=== PATIENT | female | born 1935 | race Native Hawaiian/Other Pacific Islander ===

== ENCOUNTER 2016-08-18 15:15 | Outpatient (CLI) | payer OTHER ==
[~2016-08-18 15:15] MED LIST: AMLO2.5T PO; CRESTOR20 MG PO; DIPH2.5T76 PO; METO50TA27 PO; PROAIR HFA IN; TRAM50TA PO; XANAX XR1 MG PO
[2016-08-19] MEDS ORDERED: FERROUS SULF325 MG PO (09:51)
[2016-08-19] MEDS ORDERED: MICRO-K10 MEQ PO (09:52)
[2016-08-19] MEDS ORDERED: RISP0.25 PO (09:53)
[2016-08-19] MEDS ORDERED: ESCITALOPRAM5 MG PO (09:54)
[2016-08-19] MEDS ORDERED: DIVALPROEX250 MG PO (09:54)
[2016-08-19] MEDS ORDERED: NAMENDA XR28 MG PO (09:54)
[2016-08-19] MEDS ORDERED: DIVALPROEX500 M1 PO (09:55)
[2016-08-19] MEDS ORDERED: FURO20TA67 PO (09:56)
== END 2016-08-18 15:27 | disposition short-term general hospital (02) ==
LOC: AMB 15:15
DX: R41.82 Altered mental status, unspecified (principal)
CPT/HCPCS: A0425; A0427

== ENCOUNTER 2016-08-18 15:27 | Inpatient (IN) | payer OTHER ==
[~2016-08-18] VITALS: Ht 154.9 cm; Wt 69.9 kg
[2016-08-18 15:49] VITALS: BP 148/68; TEMP 98.2
[2016-08-18 17:53] LABS: PLATELET COUNT 279 K/uL (152-353)
[2016-08-18 18:08] LABS: POTASSIUM 4.5 mmol/L (3.6-5.2)
[2016-08-18 18:46] VITALS: BP 131/61
[2016-08-19] VITALS (7 sets, daily range): BP systolic 126–183; BP diastolic 55–93; TEMP 97.6–100.5; Ht 154.9 cm; Wt 69.9 kg
[2016-08-19] MEDS ORDERED: FERROUS SULF325 MG PO (09:51)
[2016-08-19] MEDS ORDERED: MICRO-K10 MEQ PO (09:52)
[2016-08-19] MEDS ORDERED: RISP0.25 PO (09:53)
[2016-08-19] MEDS ORDERED: ESCITALOPRAM5 MG PO (09:54)
[2016-08-19] MEDS ORDERED: NAMENDA XR28 MG PO (09:54)
[2016-08-19] MEDS ORDERED: DIVALPROEX250 MG PO (09:54)
[2016-08-19] MEDS ORDERED: DIVALPROEX500 M1 PO (09:55)
[2016-08-19] MEDS ORDERED: FURO20TA67 PO (09:56)
[2016-08-20 04:00] VITALS: BP 165/67; TEMP 98.9
[2016-08-20 05:28] LABS: PLATELET COUNT 230 K/uL (152-353)
[2016-08-20 05:52] LABS: POTASSIUM 4.9 mmol/L (3.6-5.2); SODIUM 127 mmol/L (136-145)
[2016-08-20 08:00] VITALS: BP 159/67; TEMP 99.3
--- NOTE | 2016-08-20 10:30 | NUR ---
PT IV SITE TENDER AND SLIGHTLY EDEMATOUS. IV DC'D WITH CANNULA INTACT AND SITE CARE PROVIDED. PT HAD BM. PT CLEANED AND CHANGED. SMALL BREAKDOWN NOTED TO BUTTOCKS. MEASURES APPX 1/2 CM X 1/2 CM. WILL INFORM MD. DAUGHTER STATES PT REFUSES TO TURN AT TIMES. INSTRUCTED DAUGHTER ON THE IMPORTANCE OF TURNING AND STAYING OFF BUTTOCKS. PT ON L SIDE AT THIS TIME.
[2016-08-20 12:00] VITALS: BP 148/62; TEMP 98.6
--- NOTE | 2016-08-20 12:30 | NUR ---
PT DAUGHTER CHANGING PT UPON ENTERING ROOM. INSTRUCTED PT TECH AND NURSE WOULD CHANGE HER. DAUGHTER STATED SHE WOULD DO IT. INSTRUCTED DAUGHTER NEED OF ROTATING PT EVERY 2 HOURS. DAUGHTER V/U. INSTRUCTED DAUGHTER TO CALL FOR ANY ASSISTANCE.
--- NOTE | 2016-08-20 12:40 | NUR ---
IV STARTED TO R FA WITH 22G ANGIOCATH X 1 ATTEMPT. PT TOLERATED WELL. NS INFUSING AT 75ML/HR ORDERED.
--- NOTE | 2016-08-20 15:01 | NUR ---
PT BATHED AND CLEANED AT THIS TIME. LINENS CHANGED. PT TOLERATED WELL. LANISEPTIC AND CALAZIME APPLIED TO BUTTOCKS ORDERED.
[2016-08-20 16:00] VITALS: BP 140/62; TEMP 100.4
--- NOTE | 2016-08-20 18:14 | NUR ---
PT CLEANED AND CHANGED. LINENS CHANGED AGAIN AT THIS TIME. PT ON LEFT SIDE AT THIS TIME. DAUGHTER AT BS
[2016-08-20 20:00] VITALS: BP 142/72; TEMP 97.9
[2016-08-21] VITALS: BP 158/70; TEMP 98.9
[2016-08-21 05:54] VITALS: BP 145/92; TEMP 99.2
[2016-08-21 07:58] LABS: PLATELET COUNT 206 K/uL (152-353)
[2016-08-21 08:00] VITALS: BP 132/58; TEMP 99.2
[2016-08-21 08:13] LABS: POTASSIUM 4.4 mmol/L (3.6-5.2); SODIUM 128 mmol/L (136-145)
[2016-08-21 11:49] VITALS: BP 156/78; TEMP 99
[2016-08-21 16:00] VITALS: BP 164/79; TEMP 102.4; TEMP 99.4
[2016-08-21 20:00] VITALS: BP 150/66; TEMP 97.8
[2016-08-22 00:18] VITALS: BP 127/94; TEMP 98
[2016-08-22 04:00] VITALS: BP 175/73; TEMP 98.3
[2016-08-22 05:06] LABS: PLATELET COUNT 219 K/uL (152-353)
[2016-08-22 05:36] LABS: POTASSIUM 4.4 mmol/L (3.6-5.2); SODIUM 130 mmol/L (136-145)
[2016-08-22 08:00] VITALS: BP 127/58; TEMP 98.8
--- NOTE | 2016-08-22 09:43 | NUR ---
PT'S AM METOPROLOL REFUSED BY CAREGIVER AT BEDSIDE. AT 08:00, PCT'S WERE ATTEMPTING TO PERFORM IN & OUT CATH TO OBTAIN UA PER MD ORDER AND PT URINATED 3RD BEDADINE WIPE WAS BEING USED. WILL ATTEMPT AGAIN TO IN AND OUT CATH PT. PT IN NO MEDICAL DISTRESS AT THIS TIME.
[2016-08-22 12:00] VITALS: BP 114/58; TEMP 98.5
[2016-08-22 16:00] VITALS: BP 124/56; TEMP 98.2
[2016-08-22 20:29] VITALS: BP 134/71; TEMP 101.2
--- NOTE | 2016-08-22 21:15 | NUR ---
EVENING VS REVEALED TEMP OF 101.2, PT WAS GIVEN TYLENOL 650 MG PO WITH FOLLOW UP T OF 99.4 AX. ROOM WAS WARM, THERMOMETER ADJUSTED AND PT RESTING QUIETLY. TAKES MEDICATIONS 1-2 AT A TIME WITHOUT DIFFICULTY. MILDLY FLAT AFFECT, NONVERBAL AT THIS TIME.
[2016-08-23] VITALS: BP 151/71; TEMP 98.3
[2016-08-23 04:00] VITALS: BP 148/65; TEMP 97.7
[2016-08-23 05:47] LABS: POTASSIUM 4.5 mmol/L (3.6-5.2); SODIUM 131 mmol/L (136-145)
[2016-08-23 06:10] LABS: PLATELET COUNT 223 K/uL (152-353)
[2016-08-23 08:00] VITALS: BP 143/65; TEMP 98.5
--- NOTE | 2016-08-23 11:54 | NUR ---
PT'S TEMP NOTED TO BE 100.3 UPON ROUTINE VITAL SIGNS AT 11:30. PT HAD 3 BLANETS ON, 2 COVERS REMOVED AND TEMP REMAINS AT 76 IN ROOM PER PT'S DAUGHTER REQUEST. WILL RECHECK PT TEMP IN 30 ANGELINA
[2016-08-23 12:17] VITALS: BP 159/83; TEMP 100.3
[2016-08-23 15:59] VITALS: BP 144/81; TEMP 98.8
[2016-08-23 20:00] VITALS: BP 134/72; TEMP 98
[2016-08-24] VITALS (7 sets, daily range): BP systolic 108–142; BP diastolic 56–68; TEMP 97.1–99.5
[2016-08-24 05:09] LABS: PLATELET COUNT 256 K/uL (152-353)
--- NOTE | 2016-08-24 05:26 | NUR ---
08/24/16 O455 IN AND OUT CATH PERFORMED VIA TABLE GAMES DUAL RATE SUPERVISOR TO OBTAIN URINE FOR UA, PT IS INCONTINENT. PT TOLERATED WITH NO PROBLEMS. CLEAR, LIGHT YELLOW URINE NOTED.
[2016-08-24 05:36] LABS: POTASSIUM 4.2 mmol/L (3.6-5.2); SODIUM 133 mmol/L (136-145)
--- NOTE | 2016-08-24 09:08 | NUR ---
PT CLEANED AND TURNED AT THIS TIME. CREAM APPLIED TO BOTTOM ORDERED. SEE WOULD ASSESSMENT FOR MEASUREMENTS. PT TOLERATED WELL.
--- NOTE | 2016-08-24 11:49 | NUR ---
PT HAD BM AGAIN. PT CLEANED, CHANGED, AND TURNED TO R SIDE AT THIS TIME. PT TOLERATED WELL.
--- NOTE | 2016-08-24 12:00 | NUR ---
DR CHACKO AT BS. NEW ORDERS GIVEN FOR WOUND ON BUTTOCKS. DUODERM APPLIED ORDERED.
--- NOTE | 2016-08-24 16:15 | NUR ---
PT REC'D BATH AT THIS TIME. LINENS CHANGED. PT HAD LOOSE BM. PT TOLERATED BATH WELL. NAD NOTED.
[2016-08-25 00:26] VITALS: BP 127/61; TEMP 99
[2016-08-25 04:00] VITALS: BP 149/68; TEMP 98.5
[2016-08-25 06:25] LABS: PLATELET COUNT 291 K/uL (152-353)
[2016-08-25 07:01] LABS: POTASSIUM 4.4 mmol/L (3.6-5.2); SODIUM 130 mmol/L (136-145)
[2016-08-25 08:00] VITALS: BP 141/69; TEMP 98.5
--- NOTE | 2016-08-25 09:00 | NUR ---
PT UP TO CHAIR AT THIS TIME FOR BREAKFAST. WEAKNESS NOTED. PT TOLERATED WELL. PT TOOK AM MEDS WITHOUT DIFFICULTY. 1000-PT BACK TO BED AT THIS TIME. LINENS CHANGED. PT CHANGED AND PT ON R SIDE AT THIS TIME WITH ARMS ELEVATED. PT TOLERATED WELL.
[2016-08-25 12:00] VITALS: BP 142/68; TEMP 98.8
== END 2016-08-25 15:30 | disposition swing bed (61) | DRG 690 ==
LOC: ED 15:27 → MED/SURG 18:47 → ED 21:03 → MED/SURG 08-25 15:30
PROVIDERS: Emergency Medicine; ADMIT Specialist
DX: N39.0 Urinary tract infection, site not specified (principal); E87.1 Hypo-osmolality and hyponatremia; B96.20 Unspecified Escherichia coli [E. coli] as the cause of diseases classified elsewhere; R41.82 Altered mental status, unspecified; E87.6 Hypokalemia; E86.9 Volume depletion, unspecified; J20.9 Acute bronchitis, unspecified; F03.90 Unspecified dementia, unspecified severity, without behavioral disturbance, psychotic disturbance, mood disturbance, and anxiety
CPT/HCPCS: 36415; 51702; 80053; 80307; 81000; 83605; 83735; 84100; 85027; 87040; 87077; 87086; 87088; 87186; 94640; 94664; 94760; 96360; 96361; 96365; 96367; 96375; 99284; G0479; J0696; J1720; J3411; J3475; J3490

== ENCOUNTER 2016-08-25 15:30 | Inpatient (IN) | payer OTHER ==
[~2016-08-25] VITALS: Ht 154.9 cm; Wt 69.9 kg
[~2016-08-25 15:30] MED LIST changes: +DIVALPROEX250 MG PO; +DIVALPROEX500 M1 PO; +ESCITALOPRAM5 MG PO; +FERROUS SULF325 MG PO; +FURO20TA67 PO; +MICRO-K10 MEQ PO; +NAMENDA XR28 MG PO; +RISP0.25 PO
[2016-08-25 17:12] VITALS: BP 142/68; TEMP 98.8; Ht 154.9 cm; Wt 69.9 kg
--- NOTE | 2016-08-25 17:34 | NUR ---
1530-PT CHANGED TO SWINGBED STATUS AT THIS TIME. IV DC'D WITH CANNULA INTACT AND SITE CARE PROVIDED. PT TURNED AND REPOSTIONED AT THIS TIME. PT TOLERATED WELL.
[2016-08-25 20:45] VITALS: BP 138/69; TEMP 97.7
[2016-08-26 08:00] VITALS: BP 121/57; TEMP 98.3
[2016-08-26 20:14] VITALS: BP 126/63; TEMP 97.8
[2016-08-27 08:20] VITALS: BP 135/60; TEMP 98.1
[2016-08-28 08:00] VITALS: BP 125/56; TEMP 98
[2016-08-28 20:11] VITALS: BP 131/67; TEMP 98.5
[2016-08-29 20:06] VITALS: BP 144/61; TEMP 99.4
--- NOTE | 2016-08-30 08:30 | NUR ---
PAATIENT AWAKE AND ALERT, DAUGHTER AT BEDSIDE. ASSITED CHANGING HER DIAPER. NEW DOUDERM APPLIEED TO BUTTOCKS TO SMALL DECUBITIS. LANTISEPTIC OINTMENT APPLIED, SKIN IS NOT RED OR IRITATED. MEDICATIONS ADMINISTERED WITHOUT DIFFICULTY. PATIENT DOES NOT APPEAR TO BE IN ANY DISCOMFORT.
[2016-08-30 20:34] VITALS: BP 131/59; TEMP 98.5
[2016-08-31 08:00] VITALS: BP 147/63; TEMP 98.1
--- NOTE | 2016-08-31 10:33 | NUR ---
PT TO THERAPY VIA W/C WITH NAD PER EVI YEBOAH
--- NOTE | 2016-08-31 11:15 | NUR ---
PT BACK INTO ROOM VIA W/C PER TESFAYE CHISHOLM
[2016-08-31 20:00] VITALS: BP 157/55; TEMP 98.3
--- NOTE | 2016-08-31 23:01 | NUR ---
08/31/161999 PT BRIEF CHANGED WITH BOWEL MOVEMENT.CC 08/31/16 2230 BRIEF CHANGED WITH BOWEL MOVEMENT.CC
--- NOTE | 2016-09-01 01:19 | NUR ---
09/01/16 0115 BRIEF CHANGED LOOSE STOOL REPORTED PER PCT.TOTAL BM X3 ON PM SHIFT.CC
[2016-09-01 06:21] LABS: POTASSIUM 4.7 mmol/L (3.6-5.2); SODIUM 135 mmol/L (136-145)
[2016-09-01 07:44] LABS: PLATELET COUNT 247 K/uL (152-353)
--- NOTE | 2016-09-01 16:44 | NUR ---
PT TURNED EVERY 2 HOURS AND REPOSTIONED NEEDED.
[2016-09-01 20:00] VITALS: BP 144/59; TEMP 99
--- NOTE | 2016-09-02 11:00 | NUR ---
DUODERM CHANGED TO BUTTOCKS DUE TO BOWEL MOVEMENT SATURATING DUODERM THAT WAS ON PTS BUTTOCKS, PT TOLERATED WELL, SMALL DIARRHEA BOWEL MOVEMENT NOTED, PT CLEANED AND BREIF CHANGED, TURNED AND REPOSITIONED, PT TOLERED WELL. NAD NOTED, WILL CONT. TO MONITOR.
[2016-09-02 20:00] VITALS: BP 141/64; TEMP 98.6
--- NOTE | 2016-09-02 20:00 | NUR ---
PT'S DAUGHTER AT BEDSIDE. PT HAD LARGE BOWEL MOVEMENT. CHANGED.
--- NOTE | 2016-09-02 23:12 | NUR ---
PT RESTING QUIETLY. DAUGHTER AT BEDSIDE.
--- NOTE | 2016-09-03 00:37 | NUR ---
PT RESTING QUIETLY ON RIGHT SIDE.
[2016-09-03 08:44] VITALS: BP 148/62; TEMP 98.6
[2016-09-03 20:00] VITALS: BP 142/62; TEMP 100.3
[2016-09-04 08:04] VITALS: BP 137/56; TEMP 98
--- NOTE | 2016-09-04 10:22 | NUR ---
PT TO THERAPY VIA W/C PER EVI YEBOAH WITH NAD.
--- NOTE | 2016-09-04 11:50 | NUR ---
PT BACK INTO ROOM FROM THERAPY WITH NAD.
[2016-09-04 20:55] VITALS: BP 154/69; TEMP 100.1
--- NOTE | 2016-09-05 15:50 | NUR ---
Received report from Elizabeth Monterroso RN, and assumed care of Pt at this time.
--- NOTE | 2016-09-05 16:00 | NUR ---
REPORT GIVEN TO KATERINE WAGNER LPN
--- NOTE | 2016-09-05 16:25 | NUR ---
At bedside with Pt, daughter and male gentleman at bedside as well. Pt resting quietly with eyes closed. Introduced myself, asked if any needs Pt, daughter or male gentleman have at this time. Pt's daughter requested a cup of coffee, provided same to daughter and male gentleman. Questioned Pt's daughter about Pt having a bath and changing bed linens. The daughter asked if we could wait to do that until she wakes up. I asked daughter to notify us when Pt is awake and stated Nisreen and myself would be glad to do this for Pt. Pt's daughter expressed her appreciation and informed she would notify us when Pt was ready for a bath and linen change. Pt and male gentleman provided a cup of coffee and condiments for same. Again, Pt's daughter and male gentleman expressed their appreciation for this service.
[2016-09-05 20:00] VITALS: BP 135/68; TEMP 99.8
[2016-09-06 07:40] VITALS: BP 140/60; TEMP 97.5
[2016-09-06 19:55] VITALS: BP 139/68; TEMP 100.2
--- NOTE | 2016-09-07 12:30 | NUR ---
ZEFERINO HERNANDES RN WITH DR CAMPBELL NOTIFIED OF PT'S TEMP 101.3 Axillary. MEDICATION GIVEN. SEE EMAR.
== END 2016-09-07 13:15 | DRG 556 ==
LOC: MED/SURG 15:30
PROVIDERS: ADMIT Emergency Medicine
DX: M62.81 Muscle weakness (generalized) (principal); D64.89 Other specified anemias; I10 Essential (primary) hypertension; R41.82 Altered mental status, unspecified; I50.9 Heart failure, unspecified; J45.998 Other asthma
CPT/HCPCS: 80053; 85027; 87045; 87205; 87328; 87329; 87493; 87798; 87899

== ENCOUNTER 2016-09-07 13:15 | Inpatient (IN) | payer OTHER ==
[~2016-09-07] VITALS: Ht 154.9 cm; Wt 73.7 kg
[2016-09-07 16:00] VITALS: BP 144/68; TEMP 98
[2016-09-07 16:11] LABS: PLATELET COUNT 227 K/uL (152-353)
[2016-09-07 16:29] LABS: POTASSIUM 4.6 mmol/L (3.6-5.2); SODIUM 128 mmol/L (136-145)
[2016-09-07 18:51] VITALS: BP 127/57; TEMP 101.3; Ht 154.9 cm; Wt 73.7 kg
[2016-09-07 20:00] VITALS: BP 160/67; TEMP 98.2
[2016-09-08] VITALS (7 sets, daily range): BP systolic 115–154; BP diastolic 54–75; TEMP 97.4–100.9
[2016-09-08 05:54] LABS: PLATELET COUNT 241 K/uL (152-353)
[2016-09-08 06:01] LABS: POTASSIUM 4.4 mmol/L (3.6-5.2); SODIUM 132 mmol/L (136-145)
[2016-09-09] VITALS: BP 148/68; TEMP 99.8
[2016-09-09 04:00] VITALS: BP 146/73; TEMP 100.8
[2016-09-09 04:57] LABS: PLATELET COUNT 213 K/uL (152-353)
[2016-09-09 05:10] LABS: POTASSIUM 4.5 mmol/L (3.6-5.2); SODIUM 134 mmol/L (136-145)
[2016-09-09 08:00] VITALS: BP 138/60; TEMP 98.8
[2016-09-09 12:00] VITALS: BP 129/57; TEMP 97.4
[2016-09-09 15:58] VITALS: BP 154/60; TEMP 98.7
--- NOTE | 2016-09-09 18:37 | NUR ---
PT RESTING WITH EYES CLOSED. DID NOT WAKE TO EAT SUPPER AT THIS TIME.
[2016-09-09 20:00] VITALS: BP 138/79; TEMP 98.1
[2016-09-10 00:06] VITALS: BP 143/61; TEMP 98.6
[2016-09-10 04:00] VITALS: BP 138/60; TEMP 98.7
[2016-09-10 06:50] LABS: PLATELET COUNT 213 K/uL (152-353)
[2016-09-10 07:10] LABS: POTASSIUM 4.4 mmol/L (3.6-5.2); SODIUM 133 mmol/L (136-145)
[2016-09-10 08:24] VITALS: BP 179/84; TEMP 98.9
--- NOTE | 2016-09-10 10:58 | NUR ---
SPOKE WITH GRANDMARIA MUGHTER IN ROOM THIS AM AND GAVE HER SOME INFORMATION ON SEVERAL NURSING HOMES AROUND THIS AREA. GRANDDAUGHTER STATED THAT HER 2 AUNTS WOULD BE HERE VERY SOON AND THEY WOULD ALL MAKE A DECISSION TOGETHER. SHE ALSO STATED THAT THIS WAS VERY DIFFICULT FOR THEM, BUT THEY KNEW THEY COULD NOT TAKE CARE OF HER ANYMORE AT HOME.
[2016-09-10 11:43] VITALS: BP 141/59; TEMP 99.6
--- NOTE | 2016-09-10 12:42 | NUR ---
DR CAMPBELL AT TALKING WITH FAMILY ABOUT TRANSFER.
--- NOTE | 2016-09-10 12:53 | NUR ---
1200- DR CAMPBELL AT TALKING WITH FAMILY.
[2016-09-10 16:13] VITALS: BP 169/81; TEMP 98.9
[2016-09-10 20:00] VITALS: BP 164/73; TEMP 98.7
[2016-09-11] VITALS: BP 117/54; TEMP 98.4
[2016-09-11 04:00] VITALS: BP 143/64; TEMP 98.8
[2016-09-11 05:12] LABS: PLATELET COUNT 238 K/uL (152-353)
[2016-09-11 05:23] LABS: POTASSIUM 4.3 mmol/L (3.6-5.2); SODIUM 131 mmol/L (136-145)
[2016-09-11 08:00] VITALS: BP 149/69; TEMP 97.2
--- NOTE | 2016-09-11 11:00 | NUR ---
1100 DR CAMPBELL SPOKE WITH DR PAL ON PHONE. DR PAL AGREED TO ACCEPT PT. AWAITING FURTHER ORDERS
--- NOTE | 2016-09-11 12:47 | NUR ---
1215 PT LEFT VIA STREACTHER WITH EMS. NO DISTRESS NOTED 1245 REPORT GIVEN TO CHLOÉ
== END 2016-09-11 13:16 | disposition short-term general hospital (02) | DRG 866 ==
LOC: MED/SURG 13:15
PROVIDERS: ADMIT Internal Medicine
DX: B34.9 Viral infection, unspecified (principal); R65.10 Systemic inflammatory response syndrome (SIRS) of non-infectious origin without acute organ dysfunction; I35.0 Nonrheumatic aortic (valve) stenosis; R00.0 Tachycardia, unspecified; R50.9 Fever, unspecified; R01.1 Cardiac murmur, unspecified; R51 Headache; R62.7 Adult failure to thrive
CPT/HCPCS: 36415; 36600; 80053; 81000; 82805; 83735; 83970; 84100; 85027; 87040; 87045; 87205; 87328; 87329; 87493; 87798; 87804; 87899; 93306; 94760; 96372; J1644; J1940

== ENCOUNTER 2016-09-11 12:10 | Outpatient (CLI) | payer OTHER | END 2016-09-11 13:40 | disposition short-term general hospital (02) | LOC: AMB 12:10 | DX: B34.9 Viral infection, unspecified (principal); R65.10 Systemic inflammatory response syndrome (SIRS) of non-infectious origin without acute organ dysfunction; I35.0 Nonrheumatic aortic (valve) stenosis; R00.0 Tachycardia, unspecified; R50.9 Fever, unspecified; R01.1 Cardiac murmur, unspecified; R51 Headache; R62.7 Adult failure to thrive | CPT/HCPCS: A0425; A0429 ==